=== PATIENT | female | born 1945 | race Caucasian/White ===

== ENCOUNTER 2016-11-29 08:04 | Day surgery (SDC) | payer MEDICARE, BC ==
[~2016-11-29 08:04] MED LIST: Brimonidine 0.2% Ophth Soln 5 ML Bottle ONE; Cataract Ophth Solution EYERT PRN; Hypromellose 2.5% Ophth Soln 15 ML Bottle EYERT PRN; Lidocaine 1% 2 ML ONE; Lidocaine 3.5% Ophth Gel 1 ML Bottle ONE; Povidone-Iodine 5% Sterile Ophth Soln 30 ML Bottle ONE; Sodium Chloride 0.9% 10 ML Syringe FLUSH PRN
[2016-11-29] MEDS: Proparacaine 0.5% Ophth Soln 15 ML Bottle EYERT PRN ×2 (08:30→11:18)
[2016-11-29] MEDS ORDERED: Lidocaine 1% PF 2 ML SDV INJECT ONE (11:19)
[2016-11-29] MEDS ORDERED: Ciprofloxacin 0.3% Ophth Soln 2.5 ML Bottle EYERT ONE (11:20)
[2016-11-29] MEDS ORDERED: Chondroitin Sulfate/Hyaluronate Sodium Ophth Inj 0.5 ML Syringe IOCULAR ONE (11:20)
[2016-11-29] MEDS ORDERED: Vancomycin 500 MG SDV EYERT ONE (11:21)
[2016-11-29] MEDS ORDERED: Balanced Salt Solution Ophth Irrig 500 ML Bottle IOCULAR ONE (11:23)
[2016-11-29 11:34] VITALS: BP 155/89
--- NOTE | 2016-11-29 15:30 | OR ---
PREOPERATIVE DIAGNOSIS: Senile nuclear cataract, right eye. POSTOPERATIVE DIAGNOSIS: Pseudophakia, right eye. PROCEDURE PERFORMED: Cataract extraction with intraocular lens implantation by phacoemulsification technique, right eye. ANESTHESIA: Topical anesthesia. ESTIMATED BLOOD LOSS: None. COMPLICATIONS: None. INDICATIONS: The patient is a 71-year-old female, who was found to have a senile nuclear cataract, reducing her best corrected visual acuity. After explaining the risks, benefits, and alternatives of cataract surgery an informed consent was obtained. DESCRIPTION OF PROCEDURE: After identifying the patient in the preoperative area, the patient was brought to the operating room. The patient was prepped and draped in a sterile fashion. A lid speculum was inserted into the eye. The microscope was brought into the field. Lidocaine gel was applied to the external surface of the eye. A paracentesis was made 3 clock hours away from the surgeon's operating hand. The anterior chamber was anesthetized with preservative-free Lidocaine. The anterior chamber was filled with Viscoat. A clear corneal incision was made at the 180-degree meridian with a 2.75mm keratome. A continuous tear circular capsulorrhexis was performed. The nucleus was hydrodissected with balanced salt solution. The nucleus was sculpted and removed from the eye using a divide and conquer technique with the phacoemulsification handpiece. The residual viscoelastic was removed with the I/A handpiece. The anterior chamber and capsular bag were filled with Amvisc. An BEKAH lens, model ZCB00 with a power of 20.0 diopters and a serial number of [id number] was injected into the capsular bag. The lens was rotated completely into the capsular bag with a Sinskey hook. The residual viscoelastic was removed with the I/A handpiece. The anterior chamber was filled with balanced salt solution to a physiologic pressure. The corneal wound was closed with stromal hydration and seen to be water tight by Weck-Deandra sponge testing. The patient received a drop of Zymar and Alphagan at the end of the case. There were no complications of this case. The patient will be followed postoperatively by Dr. Juanita Devine. SKA: 11/29/2016 11:31:46 MODL: 11/29/2016 15:21:30 /[id number]
== END 2016-11-29 12:10 | disposition home or self-care (01) ==
LOC: VM.SDS 08:04
PROVIDERS: ATTEND Ophthalmology
DX: Z96.1 Presence of intraocular lens (principal); H25.11 Age-related nuclear cataract, right eye; Z88.0 Allergy status to penicillin; I10 Essential (primary) hypertension; E11.9 Type 2 diabetes mellitus without complications; Z79.82 Long term (current) use of aspirin; Z79.899 Other long term (current) drug therapy; E88.09 Other disorders of plasma-protein metabolism, not elsewhere classified; E78.2 Mixed hyperlipidemia; E66.9 Obesity, unspecified; K21.9 Gastro-esophageal reflux disease without esophagitis; E78.00 Pure hypercholesterolemia, unspecified; Z98.890 Other specified postprocedural states; Z98.51 Tubal ligation status
CPT/HCPCS: 00142; 66984; A9270; C1780; J3370; J7050; 82962

== ENCOUNTER 2020-10-22 06:47 | Day surgery (SDC) | payer MEDICARE, BC ==
[2020-10-22] MEDS ORDERED: Lactated Ringers 1,000 ML IV SCH (07:00)
[2020-10-22] MEDS ORDERED: 50% Dextrose in Water 50 ML Syringe ONE (07:20)
[2020-10-22] MEDS ORDERED: Citric Acid/Sodium Citrate Solution 30 ML Cup ONE (07:27)
[2020-10-22] MEDS ORDERED: Propofol 200 MG/20 ML SDV ONE (08:19)
[2020-10-22] MEDS ORDERED: fentaNYL 100 MCG/2 ML SDV ONE (08:19)
[2020-10-22 09:17] VITALS: BP 135/68; PULSE 57
--- NOTE | 2020-10-22 11:47 | OR ---
PREOPERATIVE DIAGNOSIS: Prior sigmoid colectomy for diverticulitis. POSTOPERATIVE DIAGNOSES: 1. Prior sigmoid colectomy for diverticulitis. 2. Narrowed colorectal anastomosis. 3. Internal hemorrhoids. PROCEDURE PERFORMED: Total flexible colonoscopy. ANESTHESIA: MAC anesthesia. COMPLICATIONS: None. BLOOD LOSS: None. FINDINGS: 1. There is a narrowed colorectal anastomosis through which I could pass the scope with small amount of resistance. 2. Internal hemorrhoids. START TIME: 0834. CECUM TIME: 0838. STOP TIME: 0848. BOWEL PREP: [place] class 3. INDICATIONS FOR PROCEDURE: Johanna Pagan is a 75-year-old female who has a history of diverticulitis, status post sigmoid colectomy 10 years ago. She reportedly had a colonoscopy at that time, which did not show any polyps. She currently denies any bloody or dark black stools, and has no family history of colon cancer. DETAILS OF PROCEDURE: After informed consent was obtained, the patient was brought to the procedure room, placed in left lateral decubitus position. MAC anesthesia was induced by Anesthesia colleagues. Colonoscope was introduced into the rectum and advanced all the way to the cecum. It was then slowly withdrawn. No pathology was identified except for what is mentioned in the above findings section. A retroflexed view was obtained. The colonoscope was removed. The patient tolerated the procedure well, was awoken from anesthesia without incident. Recommend repeat screening colonoscopy at age 82. This would be about 7 years from now. RKM: 10/22/2020 08:54:29 MODL: 10/22/2020 11:29:09 /[id number]
[2020-10-22] MEDS ORDERED: Citric Acid/Sodium Citrate Solution 30 ML Cup PO ONE (12:04)
[2020-10-22] MEDS ORDERED: 50% Dextrose in Water 50 ML Syringe IV PRN (12:05)
== END 2020-10-22 10:10 | disposition home or self-care (01) ==
LOC: VM.SDS 06:47
PROVIDERS: ATTEND Student in an Organized Health Care Education/Training Program
DX: Z12.11 Encounter for screening for malignant neoplasm of colon (principal); K64.8 Other hemorrhoids; E11.9 Type 2 diabetes mellitus without complications; E78.2 Mixed hyperlipidemia; I10 Essential (primary) hypertension; E66.9 Obesity, unspecified; Z79.899 Other long term (current) drug therapy; Z90.49 Acquired absence of other specified parts of digestive tract; Z98.0 Intestinal bypass and anastomosis status; Z79.4 Long term (current) use of insulin; Z79.82 Long term (current) use of aspirin; Z87.19 Personal history of other diseases of the digestive system; Z88.0 Allergy status to penicillin
CPT/HCPCS: 00811; 82947; A9270-GY; J2704; J3010; J7120

== ENCOUNTER 2023-07-08 17:11 | Emergency (ER) | payer MEDICARE, BC ==
[2023-07-08 17:22] VITALS: BP 146/67; PULSE 64
== END 2023-07-08 17:54 | disposition home or self-care (01) ==
LOC: VM.ED 17:11
DX: E11.649 Type 2 diabetes mellitus with hypoglycemia without coma (principal); I10 Essential (primary) hypertension; E78.00 Pure hypercholesterolemia, unspecified; M19.90 Unspecified osteoarthritis, unspecified site; Z88.0 Allergy status to penicillin; Z79.82 Long term (current) use of aspirin; Z79.4 Long term (current) use of insulin; Z79.84 Long term (current) use of oral hypoglycemic drugs; Z79.899 Other long term (current) drug therapy
CPT/HCPCS: 82947; 99284